=== PATIENT | female | born 1950 | race Asian ===

== ENCOUNTER → 2017-01-17 | Outpatient (CLI) | payer MEDICARE, OTHER | END | disposition home or self-care (01) | LOC: CFH 10:30 | PROVIDERS: ATTEND Internal Medicine Cardiovascular Disease | DX: I35.0 Nonrheumatic aortic (valve) stenosis (principal); I07.1 Rheumatic tricuspid insufficiency; I35.1 Nonrheumatic aortic (valve) insufficiency; I37.1 Nonrheumatic pulmonary valve insufficiency | CPT/HCPCS: 93306 ==

== ENCOUNTER 2017-02-21 08:05 | Day surgery (SDC) | payer MEDICARE ==
[2017-02-20 11:04] VITALS: BP 124/87
[2017-02-20 12:20] LABS: ASPARTATE AMINO TRANSFERASE 9 U/L (15-37); BLOOD UREA NITROGEN 10 mg/dL (7-18)
[~2017-02-21] VITALS: Ht 154.9 cm; Wt 72.7 kg
[~2017-02-21 08:05] MED LIST: AMLO10TA2 PO; ASPI-496 PO; ATOR20TA9 PO; CARV-39 PO; CHLO25TA PO; CHOL10003 PO; CYAN50008 PO; FISH1CAP PO; LEVO50TA5 PO; LISI40TA PO; METF10002 PO; MULT-658 PO
[2017-02-21] MEDS ORDERED: SODIUM CHLORIDE 0.9% 1,000 ML IV SCH (08:23)
[2017-02-21] MEDS ORDERED: ACETAMINOPHEN 325 MG TABLET PO PRN (08:30)
[2017-02-21] MEDS ORDERED: BISACODYL 10 MG SUPP PR PRN (08:30)
[2017-02-21] MEDS ORDERED: ZOLPIDEM 5MG TABLET PO PRN (08:30)
[2017-02-21] MEDS ORDERED: ONDANSETRON 2MG/ML, 2ML IVPush PRN (08:30)
[2017-02-21] MEDS ORDERED: BISACODYL 5 MG EC TABLET PO PRN (08:30)
[2017-02-21] MEDS ORDERED: ASPIRIN 325 MG TABLET EC PO ONE (08:30)
[2017-02-21] MEDS ORDERED: MIDAZOLAM 1 MG/ML, 5ML ONE (09:44)
[2017-02-21] MEDS ORDERED: FENTANYL PF 100 MCG/2ML ONE (09:44)
[2017-02-21] MEDS ORDERED: LIDOCAINE 2%, 20ML ONE (09:44)
== END 2017-02-21 14:08 | disposition home or self-care (01) ==
LOC: CACL 08:05
PROVIDERS: ATTEND Internal Medicine Cardiovascular Disease
DX: I35.0 Nonrheumatic aortic (valve) stenosis (principal); I10 Essential (primary) hypertension; E78.2 Mixed hyperlipidemia; E03.9 Hypothyroidism, unspecified; E11.65 Type 2 diabetes mellitus with hyperglycemia; M10.9 Gout, unspecified; Z72.89 Other problems related to lifestyle
CPT/HCPCS: 36415; 71020; 80053; 80061; 83036; 85025; 85610; 85730; 93005; 93454; C1769; C1894; J2250; J3010; J3490; Q9967

== ENCOUNTER → 2017-03-07 | Outpatient (CLI) | payer MEDICARE ==
[~2017-03-07] MED LIST changes: +OMNIPAQUE 350 MG/ML, 100ML BOTTLE ONE
== END | disposition home or self-care (01) ==
LOC: CFH 14:02
PROVIDERS: ATTEND Thoracic Surgery (Cardiothoracic Vascular Surgery)
DX: I71.2 Thoracic aortic aneurysm, without rupture (principal); K80.20 Calculus of gallbladder without cholecystitis without obstruction; E04.1 Nontoxic single thyroid nodule; K76.0 Fatty (change of) liver, not elsewhere classified; J98.11 Atelectasis; J92.9 Pleural plaque without asbestos
CPT/HCPCS: 71275; Q9967

== ENCOUNTER 2017-03-30 20:36 | Inpatient (IN) | payer MEDICARE ==
[~2017-03-30] VITALS: Ht 154.9 cm; Wt 72.4 kg
[~2017-03-30 20:36] MED LIST changes: +CARV6.2512 PO; +DOCU-30 PO; +FURO40TA6 PO; +HYDR-3307 PO; -OMNIPAQUE 350 MG/ML, 100ML BOTTLE ONE; +POTA20TA6 PO; +WARF5TAB PO
[2017-03-30] MEDS ORDERED: ONDANSETRON 2MG/ML, 2ML IVPush ONE (21:00)
[2017-03-30] MEDS ORDERED: SODIUM CHLORIDE FLUSH 10ML SYR IVF ONE (21:00)
[2017-03-30] MEDS ORDERED: SODIUM CHLORIDE 0.9% 1,000ML IVBOLUS ONE (21:00)
[2017-03-30] MEDS ORDERED: ONDANSETRON 2MG/ML, 2ML ONE (21:22)
[2017-03-30 21:31] LABS: BLOOD UREA NITROGEN 16 mg/dL (7-18)
[2017-03-30 21:32] LABS: ASPARTATE AMINO TRANSFERASE 22 U/L (15-37)
[2017-03-30 23:43] LABS: PATH.CAST-FLAG NOT PRESENT; SPERM-FLAG NOT PRESENT; SRC-FLAG NOT PRESENT; XTAL-FLAG NOT PRESENT; YLC-FLAG NOT PRESENT
[2017-03-31] MEDS ORDERED: SODIUM CHLORIDE 0.9% 1,000 ML IV ONE (00:10)
[2017-03-31] MEDS ORDERED: ONDANSETRON 2MG/ML, 2ML IVPush PRN (00:30)
[2017-03-31] MEDS ORDERED: ONDANSETRON 2MG/ML, 2ML ONE (00:57)
[2017-03-31] MEDS ORDERED: NS + 20MEQ KCL 1,000 ML IV SCH (01:20)
[2017-03-31] MEDS ORDERED: HYDROcodone/APAP 10/325 MG TABLET PO PRN (01:30)
[2017-03-31] MEDS ORDERED: DOCUSATE 100 MG CAPSULE PO PRN (01:30)
[2017-03-31 02:00] VITALS: BP 121/82
[2017-03-31] MEDS: CARVEDILOL 6.25 MG TABLET PO SCH ×2 (06:03→17:38)
[2017-03-31] MEDS: LEVOTHYROXINE 50 MCG TABLET PO SCH (06:03)
[2017-03-31 06:58] VITALS: BP 105/67
[2017-03-31] MEDS: INSULIN ASPART 100 UNITS/ML, PEN SQ-INSULIN SCH ×4 (07:00→21:12)
[2017-03-31] MEDS ORDERED: ASPIRIN 81 MG TABLET EC PO SCH (09:00)
[2017-03-31] MEDS: CYANOCOBALAMIN 1,000 MCG TABLET PO SCH (09:13)
[2017-03-31] MEDS: CHOLECALCIFEROL 1,000 UNIT TABLET PO SCH ×2 (09:13→21:11)
[2017-03-31] MEDS: LISINOPRIL 20 MG TABLET PO SCH (09:13)
[2017-03-31] MEDS: ACETAMINOPHEN 325 MG TABLET PO PRN ×2 (09:14→13:30)
[2017-03-31 12:28] VITALS: BP 102/68
[2017-03-31] MEDS ORDERED: GADOBUTROL 7.5 MMOL/7.5 ML PFS ONE (14:51)
[2017-03-31] MEDS ORDERED: WARFARIN 5 MG TABLET PO-COUM ONE (18:00)
[2017-03-31 20:02] VITALS: BP 105/71
[2017-03-31] MEDS ORDERED: ATORVASTATIN 20 MG TABLET PO SCH (21:00)
[2017-04-01 01:58] VITALS: BP 117/81
[2017-04-01 02:00] VITALS: BP 100/65
[2017-04-01 05:32] LABS: BLOOD UREA NITROGEN 12 mg/dL (7-18)
[2017-04-01 05:34] VITALS: BP 114/79
[2017-04-01] MEDS: LEVOTHYROXINE 50 MCG TABLET PO SCH (05:35)
[2017-04-01] MEDS: CARVEDILOL 6.25 MG TABLET PO SCH (05:35)
[2017-04-01 05:37] LABS: ASPARTATE AMINO TRANSFERASE 16 U/L (15-37)
[2017-04-01 06:24] LABS: ANISOCYTOSIS 2+; MICROCYTOSIS 1+; OVALOCYTES 1+
[2017-04-01 06:25] LABS: HYPOCHROMIA 1+; SPHEROCYTES 1+; TARGET CELLS 1+
[2017-04-01] MEDS: INSULIN ASPART 100 UNITS/ML, PEN SQ-INSULIN SCH (07:00)
[2017-04-01 07:10] VITALS: BP 102/70
[2017-04-01] MEDS: CHOLECALCIFEROL 1,000 UNIT TABLET PO SCH (09:28)
[2017-04-01] MEDS: CYANOCOBALAMIN 1,000 MCG TABLET PO SCH (09:28)
[2017-04-01] MEDS: LISINOPRIL 20 MG TABLET PO SCH (09:29)
[2017-04-01] MEDS ORDERED: WARFARIN 3 MG TABLET PO-COUM SCH (18:00)
== END 2017-04-01 12:11 | disposition home or self-care (01) | DRG 103 ==
LOC: ED 23:22 → EDIP 03-31 01:00 → 4EST 03-31 01:39
PROVIDERS: ADMIT Internal Medicine; ATTEND Internal Medicine
DX: G43.109 Migraine with aura, not intractable, without status migrainosus (principal); E87.1 Hypo-osmolality and hyponatremia; J90 Pleural effusion, not elsewhere classified; J98.11 Atelectasis; D69.6 Thrombocytopenia, unspecified; E03.9 Hypothyroidism, unspecified; E11.9 Type 2 diabetes mellitus without complications; E53.8 Deficiency of other specified B group vitamins; E78.5 Hyperlipidemia, unspecified; E87.6 Hypokalemia; I10 Essential (primary) hypertension; K80.20 Calculus of gallbladder without cholecystitis without obstruction; Z82.49 Family history of ischemic heart disease and other diseases of the circulatory system; Z86.73 Personal history of transient ischemic attack (TIA), and cerebral infarction without residual deficits; Z90.710 Acquired absence of both cervix and uterus; Z95.2 Presence of prosthetic heart valve; R11.2 Nausea with vomiting, unspecified; H53.8 Other visual disturbances
CPT/HCPCS: 36415; 70450; 70553; 74020; 76700; 80053; 81001; 82962; 83690; 84443; 85025; 85610; 87324; 93005; 93306; 96361; 96374; 96376; A9585; J1815; J2405; J3480; J7030

== ENCOUNTER 2017-04-10 14:03 | Emergency (ER) | payer MEDICARE ==
[~2017-04-10] VITALS: Ht 152.4 cm; Wt 66.6 kg
[2017-04-10] MEDS ORDERED: ONDANSETRON 2MG/ML, 2ML IVPush ONE ×2 (15:00→17:00)
[2017-04-10] MEDS ORDERED: SODIUM CHLORIDE 0.9% 1,000ML IVBOLUS ONE (15:00)
[2017-04-10] MEDS ORDERED: SODIUM CHLORIDE FLUSH 10ML SYR IVF ONE (15:00)
[2017-04-10] MEDS ORDERED: FAMOTIDINE 20 MG/2 ML IVP ONE (15:00)
[2017-04-10 15:33] LABS: BLOOD UREA NITROGEN 18 mg/dL (7-18)
[2017-04-10 15:40] LABS: ASPARTATE AMINO TRANSFERASE 43 U/L (15-37)
[2017-04-10 15:56] LABS: DIFF TOTAL CELLS COUNTED 100 CELL DIFF
[2017-04-10 15:58] LABS: VERIFY COUNTS? YES
[2017-04-10 16:00] LABS: ANISOCYTOSIS 2+; MICROCYTOSIS 2+
[2017-04-10 16:01] LABS: HYPOCHROMIA 1+; SCHISTOCYTES 1+; TARGET CELLS 1+
[2017-04-10 16:04] LABS: SPHEROCYTES 1+
[2017-04-10 16:42] LABS: PATH.CAST-FLAG NOT PRESENT; SPERM-FLAG NOT PRESENT; SRC-FLAG NOT PRESENT; XTAL-FLAG NOT PRESENT; YLC-FLAG NOT PRESENT
[2017-04-10] MEDS ORDERED: ONDANSETRON 2MG/ML, 2ML ONE (16:53)
[2017-04-10 17:15] VITALS: BP 131/75
== END 2017-04-10 17:22 | disposition home or self-care (01) ==
LOC: ED 17:00
DX: K80.70 Calculus of gallbladder and bile duct without cholecystitis without obstruction (principal); I10 Essential (primary) hypertension; E11.9 Type 2 diabetes mellitus without complications; G43.909 Migraine, unspecified, not intractable, without status migrainosus; Z95.2 Presence of prosthetic heart valve; Z86.73 Personal history of transient ischemic attack (TIA), and cerebral infarction without residual deficits
CPT/HCPCS: 36415; 80053; 81001; 83690; 85025; 85610; 85730; 87086; 93005; 96361; 96374; 99285; J2405; J7030

== ENCOUNTER → 2017-06-21 | Outpatient (CLI) | payer MEDICARE ==
[~2017-06-21] MED LIST changes: +DOCU-131 PO; -DOCU-30 PO
== END | disposition home or self-care (01) ==
LOC: CFH 09:11
PROVIDERS: ATTEND Internal Medicine Cardiovascular Disease
DX: I08.1 Rheumatic disorders of both mitral and tricuspid valves (principal); I11.9 Hypertensive heart disease without heart failure; E78.5 Hyperlipidemia, unspecified; E11.9 Type 2 diabetes mellitus without complications; Z95.2 Presence of prosthetic heart valve
CPT/HCPCS: 71020; 93306

== ENCOUNTER → 2018-04-18 | Outpatient (CLI) | payer MEDICARE | END | disposition home or self-care (01) | LOC: CVU 10:52 → EDSTATUS 11:00 | PROVIDERS: ATTEND Internal Medicine Cardiovascular Disease | DX: I35.1 Nonrheumatic aortic (valve) insufficiency (principal); I11.9 Hypertensive heart disease without heart failure; E11.9 Type 2 diabetes mellitus without complications; E78.5 Hyperlipidemia, unspecified | CPT/HCPCS: 0399T; 93306 ==